=== PATIENT | female | born 1955 | race Asian ===

== ENCOUNTER 2016-12-20 22:56 | Emergency (ER) | payer BC ==
[~2016-12-20] VITALS: Ht 165.1 cm; Wt 52.2 kg
[2016-12-21 00:41] VITALS: BP 146/91
== END 2016-12-21 00:41 | disposition home or self-care (01) ==
LOC: ED 22:56
DX: I10 Essential (primary) hypertension (principal); F41.9 Anxiety disorder, unspecified; G43.909 Migraine, unspecified, not intractable, without status migrainosus